=== PATIENT | male | born 1970 | race Caucasian/White ===

== ENCOUNTER 2022-11-07 18:44 | Emergency (ER) | payer OTHER ==
[~2022-11-07] VITALS: Ht 170.2 cm; Wt 122.7 kg
[2022-11-07] MEDS ORDERED: FLORINEF ACETA0.1 MG PO ×2 (18:53→18:54)
[2022-11-07] MEDS ORDERED: CORTEF 10MG TAB10 MG PO (18:55)
[2022-11-07] MEDS ORDERED: CORTEF 20MG TAB20 MG PO (18:55)
[2022-11-07 21:00] VITALS: TEMP 97.7
[2022-11-07 21:17] VITALS: BP 135/71; PULSE 78
== END 2022-11-07 21:18 | disposition home or self-care (01) ==
LOC: COL.ER 18:44
DX: T18.128A Food in esophagus causing other injury, initial encounter (principal); Z28.310 Unvaccinated for COVID-19
CPT/HCPCS: J0330; J1100; J1170; J2405; J2704